=== PATIENT | male | born 1955 | race African-American/Black ===

== ENCOUNTER 2018-12-21 13:56 | Inpatient (IN) | payer BC, OTHER ==
[~2018-12-21] VITALS: Ht 170.2 cm; Wt 83.9 kg
[2018-12-21 14:48] LABS: Basophils # (auto) 0 uL; Basophils % (auto) 0.6 % (0.0-2.0); Eosinophils # (auto) 0.2 uL; Eosinophils % (auto) 3.6 % (0.0-7.0); Hematocrit 43.1 % (41.0-53.0); Hemoglobin 14.2 g/dL (13.5-17.5); Lymphocytes # (auto) 2.4 uL; Mean Corpuscular Hemoglobin 32.7 pg (28.0-32.0); Mean Corpuscular Hgb Conc. 32.9 g/dL (32.0-36.0); Mean Corpuscular Volume 99.5 fL (80.0-100.0); Monocytes # (auto) 0.4 uL; Monocytes % (auto) 7.6 % (0.0-12.0); Neutrophils # (auto) 1.7 uL; Neutrophils % (auto) 37.2 % (37.0-80.0); Nucleated Red Blood Cells % 0.1 %; Platelet Count (auto) 210 10^3/uL (140-450); Red Blood Cells 4.33 10^6/uL (4.5-5.90); Red Cell Distribution Width 13.5 % (11.8-14.3); White Blood Cell 4.7 10^3/uL (4.4-10.8)
[2018-12-21 15:03] LABS: Albumin 3.8 g/dL (3.4-5.0); Anion Gap 5 (5-15); Blood Urea Nitrogen 19 mg/dL (7-18); Calcium 9.4 mg/dL (8.5-10.1); Carbon Dioxide 28 mmol/L (21-32); Chloride 108 mmol/L (98-107); Glucose 92 mg/dL (74-106); Potassium 3.7 mmol/L (3.5-5.1); Sodium 141 mmol/L (136-145)
[2018-12-21 15:05] LABS: Alanine Aminotransferase 32 U/L (16-61); Aspartate Aminotransferase 30 U/L (15-37); BUN/Creatinine Ratio 17.9; GFR African American 91 mL/min; GFR Non-African American 75 mL/min
[2018-12-21 15:10] LABS: Alkaline Phosphatase 70 U/L (45-117); Bilirubin, Total 0.5 mg/dL (0.2-1.0); Total Protein 7.7 g/dL (6.4-8.2)
[2018-12-21 15:26] LABS: INR 1.05 (0.9-1.15); Partial Thromboplastin Time 28.2 sec (23.64-32.05)
[2018-12-21] MEDS ORDERED: CARV12.544 PO (17:51)
[2018-12-21] MEDS ORDERED: LOSA25TA40 PO (17:51)
[2018-12-21] MEDS ORDERED: ATOR20TA50 PO (17:51)
[2018-12-21] MEDS ORDERED: NIFE60TA59 PO (17:51)
[2018-12-21] MEDS ORDERED: BENA20TA14 PO (17:53)
[2018-12-21] MEDS ORDERED: MORPHINE SULF INJ 2 MG/ML SYRINGE 1ML IV PRN (20:00)
[2018-12-21] MEDS ORDERED: NITROGLYCERIN 0.4 MG SL TAB SL PRN (20:00)
[2018-12-21] MEDS ORDERED: ACETAMINOPHEN 500 MG TAB PO PRN (20:15)
[2018-12-21 21:30] VITALS: BP 167/71
--- NOTE | 2018-12-21 21:31 | NUR ---
OPENING NOTES RECEIVED PT FROM ED WITH NO SBAR HANDOFF REPORT. PT IS A/OX4 WITH NO S/S OF DISTRESS NOR PAIN, NOR SOB. BED IS IN LOWEST POSITION WITH SIDE RAILS UP X 2. BED BRAKES ARE LOCKED AND CALL LIGHT IS WITH IN REACH. HOB IS 30 DEGREES. DISCUSSED POC WITH PATIENT AND PATIENT VERBALIZED UNDERSTANDING.
[2018-12-21 22:00] VITALS: BP 167/71
--- NOTE | 2018-12-21 22:04 | NUR ---
NO DIET PLACED FOR PATIENT, WILL CALL HOSPITALIST.
[2018-12-21] MEDS: ATORVASTATIN 20 MG TAB PO SCH (22:14)
[2018-12-21] MEDS: FAMOTIDINE 20 MG TAB PO SCH (22:15)
[2018-12-21] MEDS: hydrALAZINE HCL 20 MG/ML VL IV PRN (22:16)
[2018-12-22 05:00] VITALS: BP 134/61
--- NOTE | 2018-12-22 07:24 | NUR ---
CLOSING NOTES ENDORSED CARE TO DAY SHIFT NURSEMONALISA.
--- NOTE | 2018-12-22 07:50 | NUR ---
Opening Shift Note Assumed care of patient, awake and alert ambulating in room. No S/S of distress/SOB or pain. Instructed on POC and to call for assist PRN, will continue to monitor for changes Q1hr and PRN.
--- NOTE | 2018-12-22 08:15 | NUR ---
Neurologist Rounding Dr. Gallegos at bedside.
[2018-12-22 08:40] VITALS: BP 141/75
[2018-12-22] MEDS ORDERED: LORazepam 2MG/ML-1ML VIAL IV PRN (08:45)
[2018-12-22] MEDS: FAMOTIDINE 20 MG TAB PO SCH ×2 (10:37→21:38)
[2018-12-22] MEDS: BENAZEPRIL HCL 10 MG TAB PO SCH (10:38)
--- NOTE | 2018-12-22 10:55 | NUR ---
MRI Patient left unit in wheelchair with video surveillance technician for MRI.
--- NOTE | 2018-12-22 11:23 | NUR ---
On unit. Patient returned to unit. No complaints at this time.
[2018-12-22 12:41] VITALS: BP 157/79
[2018-12-22] MEDS: hydrALAZINE HCL 20 MG/ML VL IV PRN ×2 (14:41→21:38)
[2018-12-22 15:15] LABS: Urine Bacteria NONE SEEN /hpf (None Seen); Urine Blood Negative /uL (Negative); Urine Specific Gravity 1.007 (1.001-1.035); Urine Sperm PRESENT /hpf (None Seen); Urine WBC <1 /hpf (0 - 3)
[2018-12-22 17:00] VITALS: BP 120/58
--- NOTE | 2018-12-22 17:30 | NUR ---
Rounding Patient laying in bed asleep. Will continue to monitor.
--- NOTE | 2018-12-22 19:38 | NUR ---
OPENING NOTES RECEIVED REPORT FROM DAY SHIFT NURSE. PT IS A/OX4 WITH NO S/S OF DISTRESS NOR PAIN, NOR SOB. BED IS IN LOWEST POSITION WITH SIDE RAILS UP X 2. BED BRAKES ARE LOCKED AND CALL LIGHT IS WITH IN REACH. HOB IS 30 DEGREES. DISCUSSED POC WITH PATIENT AND PATIENT VERBALIZED UNDERSTANDING.
[2018-12-22 20:00] VITALS: BP 157/79
--- NOTE | 2018-12-22 20:26 | NUR ---
EKG EKG PERFORMED ON PATIENT ORDERED BY MD FARIA. RESULTS FOLLOWS: SINUS RHYTHM WITH 1TH DEGREE AV BLOCK RIGHT BUNDLE BRANCH BLOCK, LEFT ANTERIOR FASCICULAR BLOCK, BIFASCICULAR BLOCK, LEFT VENTRICULAR HYPERTROPHY WITH QRS WIDENING, ABNORMAL ECG.
[2018-12-22] MEDS: ATORVASTATIN 20 MG TAB PO SCH (21:38)
[2018-12-22 22:00] VITALS: BP 154/69
--- NOTE | 2018-12-23 01:59 | NUR ---
HEART PAUSE PT HAS 2 ONE SECOND HEART PAUSES. PT AWAKEN AND ASYMPTOMATIC, DENIES CHEST PAIN AND DISTRESS. VITAL SIGNS HR 61, TEMP 98.1, BP 151/70, RR 18, SPO2 98. EKG PERFORMED DIFFERS FROM PREVIOUS EKG IN A LEFT AXIS DEVIATION. WILL CONTINUE TO MONITOR.
[2018-12-23 05:00] VITALS: BP 139/83
[2018-12-23 06:35] LABS: Albumin 3.7 g/dL (3.4-5.0); BUN/Creatinine Ratio 21.9; Calcium 8.6 mg/dL (8.5-10.1); Potassium 3.4 mmol/L (3.5-5.1)
[2018-12-23 06:37] LABS: Basophils # (auto) 0 uL; Basophils % (auto) 0.4 % (0.0-2.0); Eosinophils # (auto) 0.1 uL; Eosinophils % (auto) 2.3 % (0.0-7.0); Hematocrit 41.8 % (41.0-53.0); Hemoglobin 14.1 g/dL (13.5-17.5); Lymphocytes # (auto) 2.6 uL; Lymphocytes % (auto) 45.8 % (10.0-50.0); Mean Corpuscular Hemoglobin 33.2 pg (28.0-32.0); Mean Corpuscular Hgb Conc. 33.9 g/dL (32.0-36.0); Monocytes # (auto) 0.5 uL; Monocytes % (auto) 8.2 % (0.0-12.0); Neutrophils # (auto) 2.4 uL; Neutrophils % (auto) 43.3 % (37.0-80.0); Platelet Count (auto) 203 10^3/uL (140-450); Red Blood Cells 4.26 10^6/uL (4.5-5.90); Red Cell Distribution Width 13.5 % (11.8-14.3); White Blood Cell 5.6 10^3/uL (4.4-10.8)
[2018-12-23 06:40] LABS: Bilirubin, Total 0.6 mg/dL (0.2-1.0); Total Protein 7.4 g/dL (6.4-8.2)
--- NOTE | 2018-12-23 07:40 | NUR ---
CLOSING NOTES ENDORSED CARE TO DAY SHIFT NURSELOU.
--- NOTE | 2018-12-23 08:20 | NUR ---
Patient sitting in chair, eating breakfast. No acute distress noted.
[2018-12-23 08:41] VITALS: BP 153/70
[2018-12-23 08:48] LABS: Folate (Folic Acid) 11.84 ng/mL (5.38-24)
--- NOTE | 2018-12-23 08:48 | NUR ---
Patient is very upset, angry, complained that many tests have been done on him but the doctor has not explained to him the results yet, he wants to see the Mortgage Operations Manager and he wants to see the Neurologist again before 11:00 am today, if not he will file a complaint to the management, he wants to speak with the Charge Nurse. Explained to patient and that doctor's have no exact or definite time on coming to the hospital to see the patients, he's free to file a complaint, I will call the Charge Nurse.
--- NOTE | 2018-12-23 08:50 | NUR ---
Called Charge Nurse Vamshi that patient is upset. Patient wants to speak with her. Vamshi said she's on a meeting at this time. Patient made aware.
--- NOTE | 2018-12-23 08:54 | NUR ---
Paged Dr. Candelario. Waiting for a clary back.
[2018-12-23] MEDS: BENAZEPRIL HCL 10 MG TAB PO SCH (09:31)
[2018-12-23] MEDS: hydrALAZINE HCL 20 MG/ML VL IV PRN (09:31)
--- NOTE | 2018-12-23 09:31 | NUR ---
SBP = 153/70. Hydralazine 10 mg IVP given for SBP >150 as ordered.
[2018-12-23] MEDS: FAMOTIDINE 20 MG TAB PO SCH ×2 (09:32→21:44)
--- NOTE | 2018-12-23 09:40 | NUR ---
Charge Nurse Vamshi spoke with the patient.
--- NOTE | 2018-12-23 10:00 | NUR ---
Charge Nurse Vamshi called House Sup regarding the follow up Cardiology Consult. Patient is waiting to see the Armored Car Messenger.
[2018-12-23] MEDS ORDERED: POTASSIUM CHL 20 Meq TABLET PO ONE (10:45)
--- NOTE | 2018-12-23 11:00 | NUR ---
BP = 150/73.
[2018-12-23 12:32] VITALS: BP 150/73
--- NOTE | 2018-12-23 13:38 | NUR ---
Patient stated he has headache. Tylenol PO given for pain as ordered.
--- NOTE | 2018-12-23 13:48 | NUR ---
Dr. Candelario at bedside. explained the results of the tests done as requested by the patient.
--- NOTE | 2018-12-23 14:00 | NUR ---
Dr. Candelario ordered to call in Benazepril 40 mg PO daily #30, stop Coreg at home, patient to make a follow up appointment with Dr. Murphy for Cardiology Consult.
--- NOTE | 2018-12-23 14:03 | NUR ---
Patient wants to go downstairs. Explained to patient the risks and benefits of going off unit/smoking downstairs against medical advice (AMA), not beyond 30 minutes, within hospital premises only. Patient verbalized understanding, signed the AMA form to go off unit/smoke downstairs.
--- NOTE | 2018-12-23 14:05 | NUR ---
Called [facility] for prescription Benazepril 40 mg daily #30.
--- NOTE | 2018-12-23 14:13 | NUR ---
Dr. Candelario ordered to discharge the patient, Dr. Murphy's office to call the patient for appointment.
[2018-12-23 14:48] VITALS: BP 150/73
--- NOTE | 2018-12-23 15:00 | NUR ---
Dr. Renee came over for Cardiology Consult.
--- NOTE | 2018-12-23 15:15 | NUR ---
Dr. Renee ordered Stress Test tomorrow, Carotid Doppler, hold the discharge order today.
--- NOTE | 2018-12-23 15:15 | NUR ---
Dr. Renee ordered to call the HÉCTOR to inform the RN if patient's Heart Rate goes bradycardia.
--- NOTE | 2018-12-23 15:20 | NUR ---
Paged Dr. Candelario.
--- NOTE | 2018-12-23 15:22 | NUR ---
Dr. Candelario called back. made aware Dr. Renee ordered Stress Test tomorrow,hold the discharge order today.
[2018-12-23 17:00] VITALS: BP 144/83
--- NOTE | 2018-12-23 17:36 | NUR ---
H[facility]CTOR Tech called that patient Heart Rate went down from 60 to 59 then back to 60 bpm to 61 bpm.
--- NOTE | 2018-12-23 18:30 | NUR ---
Patient stated Dr. Diehl came over to see him for Cardiology, that he told Dr. Diehl that Dr. Renee ordered Stress Test for tomorrow. Patient requested if his Stress Test can be done early tomorrow so he would know the results right away.
--- NOTE | 2018-12-23 18:42 | NUR ---
Patient requested that RN call Stress Lab/Nuclear Medicine tomorrow morning, , if he could have the Stress Test early so he would know the results, and if he will go home.
--- NOTE | 2018-12-23 19:50 | NUR ---
PATIENT LAYING ON BED AWAKE, ALERT AND ORIENTED X 4. DENIES PAIN OR DISCOMFORT AT THIS TIME. REVIEWED POC. REMINDED OF STRESS TEST FOR MORNING. MADE AWARE NEEDED TO START ANOTHER IV LATER FOR STRESS TEST TOMORROW. PATIENT VERBALIZED UNDERSTANDING. ENCOURAGED TO CALL WHEN NEEDED ANYTHING. CONTINUE PATIENT CARE.
[2018-12-23] MEDS: ATORVASTATIN 20 MG TAB PO SCH (21:44)
--- NOTE | 2018-12-23 21:50 | NUR ---
IV insertion IV access obtained, via clean sterile technique by inserting 22 gauge catheter at LEFT FOREARM after 1 attempt. IV secured properly. No trauma to site. Patient tolerated well.
[2018-12-23 22:00] VITALS: BP 163/78
--- NOTE | 2018-12-24 00:20 | NUR ---
PATIENT RESTING ON BED WITH EYES CLOSED, NO RESPIRATORY DISTRESS NOTED. PATIENT IS EASILY AROUSABLE TO NAME. BP REASSESSED, 142/72 HR 64. DENIES PAIN OR DISCOMFORT AT THIS TIME. CONTINUE PATIENT CARE.
[2018-12-24 00:31] VITALS: BP 142/72
[2018-12-24 05:00] VITALS: BP 159/67
[2018-12-24 06:34] LABS: BUN/Creatinine Ratio 14.9; Calcium 8.8 mg/dL (8.5-10.1); Magnesium 2.6 mg/dL (1.6-2.6); Potassium 3.6 mmol/L (3.5-5.1)
--- NOTE | 2018-12-24 07:25 | NUR ---
Opening Shift Note Assumed care of patient, awake and alert, currently ambulating in room. No S/S of distress/SOB or pain reported at this time. Instructed on POC and to call for assist PRN, will continue to monitor for changes Q1hr and PRN.
[2018-12-24 08:00] VITALS: BP 159/67
--- NOTE | 2018-12-24 08:18 | NUR ---
PT OFF UNIT FOR STRESS TEST PT TAKEN VIA WHEELCHAIR, NO DISTRESS NOTED AT THIS TIME
[2018-12-24] MEDS ORDERED: ADENOSINE 70 MG in GIVE UN-DILUTED 0 ML IV STA (08:37)
--- NOTE | 2018-12-24 08:45 | NUR ---
PT BACK FROM STRESS TEST PENDING SECOND PART OF TEST, PT ASYMPTOMATIC, NO DISTRESS NOTED, NO C/O CP, SOB OR ANY OTHER DISCOMFORT, CONT CARE
[2018-12-24] MEDS ORDERED: BENAZEPRIL HCL 10 MG TAB PO SCH (10:00)
[2018-12-24 10:26] VITALS: BP 145/68
--- NOTE | 2018-12-24 11:22 | NUR ---
BRADYCARDIA HÉCTOR CALLS TO REPORT PT HR 52, PT CURRENTLY OFF UNIT IN NUCLEAR STRESS TEST, CALLED AND SPOKE WITH BANG, PT ASYMPTOMATIC AND ON HIS WAY BACK, CONT CARE, PT RETURNED @ 1131 VS 164/77, P 55, O2 99% ON RA, NO C/O CP, SOB OR ANY OTHER DISCOMFORT, CONT CARE
--- NOTE | 2018-12-24 12:00 | NUR ---
CARDIOLOGY SPOKE WITH DR HWANG, PER PT IS CLEARED FOR DISCHARGE AND PT IS FOLLOW UP IN 2 WEEKS, [facility]
--- NOTE | 2018-12-24 12:38 | NUR ---
AT BEDSIDE DR FARIA AT BEDSIDE, DISCUSSING POC WITH PT, PENDING DC ORDER, CONT CARE
[2018-12-24] MEDS: FAMOTIDINE 20 MG TAB PO SCH (12:46)
[2018-12-24 13:23] VITALS: BP 164/77
[2018-12-24 13:43] VITALS: BP 164/77
--- NOTE | 2018-12-24 14:30 | NUR ---
CARDIOLOGY APPOINTMENT CALLED DR MICHAEL OFFICE, SPOKE WITH BRENTON AND APPOINTMENT MADE FOR JANUARY 08 @ 1000, [facility]
--- NOTE | 2018-12-24 14:41 | NUR ---
PAGED DR BIENVENIDO GOMEZ, PT CONCERNED REGARDING [facility] REPORT, SATES " DR GRANADOS SAID I COULD DRIVE BECAUSE ITS NOT A SEIZURE", ALSO ABATING DR RIVAS TO CALL BACK, CONT CARE
--- NOTE | 2018-12-24 14:50 | NUR ---
MEDICAL RECORDS CALLED AND SPOKE WITH IVAN FROM MR, REGARDING PT AND REQUESTING THAT CERTAIN DIAGNOSIS BE REMOVED FROM HIS MEDICAL RECORDS, STATES SHE WILL TALK TO INVOLVED PROVIDERS, PT AND WIDE UPDATED
--- NOTE | 2018-12-24 15:05 | NUR ---
CALL BACK DR RIVAS RETURNED CALL, UPDATED AND INFORMED PT IS REQUESTING THAT [facility] REPORT TO NOT DRIVE NOT BE SENT TO [facility] HIS SYNCOPE WAS NOT RELATED TO SEIZURE AND THEREFORE HE SHOULD BE ALLOWED TO DRIVE HIS JOB DEPENDS ON DRIVING, DR RIVAS STATES " NO IT IS THE LAW AND FORM SHOULD BE SENT TO THE [facility] AND SHOULD BE CLEARED BY HIS PRIMARY DOCTOR", PT AND UPDATED, CONT WITH DC
--- NOTE | 2018-12-24 15:44 | NUR ---
DISCHARGE Discharge instructions given as ordered. Encourage to follow up with PMD as instructed. Appointment made to follow up with Dr Forrester on 12/29/[address] Diehl January 08 @ 1000, contact and addresses provided. All questions and concerns addressed. Patient verbalized understanding. Medication reconciliation form completed and copy given to patient. IV removed with catheter intact, pressure dressing applied. Telemetry unit returned to ICU. Patient ambulated to [facility] with all personal belongings, accompanied by staff and family member. No distress noted at time of departure.
== END 2018-12-24 17:18 | disposition home or self-care (01) | DRG 312 ==
LOC: ER 13:56 → TELE 20:06 → TELE-WESTW 21:09
PROVIDERS: ADMIT Nurse Practitioner Acute Care; ATTEND Internal Medicine
DX: R55 Syncope and collapse (principal); I45.2 Bifascicular block; N18.3 Chronic kidney disease, stage 3 (moderate); E78.5 Hyperlipidemia, unspecified; I12.9 Hypertensive chronic kidney disease with stage 1 through stage 4 chronic kidney disease, or unspecified chronic kidney disease; R00.1 Bradycardia, unspecified; E86.0 Dehydration; F17.210 Nicotine dependence, cigarettes, uncomplicated; T50.995A Adverse effect of other drugs, medicaments and biological substances, initial encounter; H93.19 Tinnitus, unspecified ear; I67.2 Cerebral atherosclerosis; W19.XXXA Unspecified fall, initial encounter; I08.0 Rheumatic disorders of both mitral and aortic valves; Z98.42 Cataract extraction status, left eye; Z98.41 Cataract extraction status, right eye; Y92.098 Other place in other non-institutional residence as the place of occurrence of the external cause
CPT/HCPCS: 36415; 70450; 70551; 71046; 78452; 80048; 80053; 80061; 81001; 82607; 82746; 82962; 83036; 83735; 83880; 84484; 85025; 85610; 85730; 93005; 93017; 93306; 93886; 96374; G0378; J0153

== ENCOUNTER 2019-08-17 19:52 | Emergency (ER) | payer BC ==
[~2019-08-17] VITALS: Ht 177.8 cm; Wt 99.8 kg
[~2019-08-17 19:52] MED LIST: ATOR20TA50 PO; BENA20TA14 PO; CARV12.544 PO; NIFE1TAB30 PO
[2019-08-17 20:37] VITALS: BP 155/67
== END 2019-08-17 22:29 | disposition home or self-care (01) ==
LOC: EDUNIT# 19:52 → EDBD 19:52 → ER 20:00
DX: S06.0X1A Concussion with loss of consciousness of 30 minutes or less, initial encounter (principal); E78.5 Hyperlipidemia, unspecified; I10 Essential (primary) hypertension; F17.210 Nicotine dependence, cigarettes, uncomplicated; X58.XXXA Exposure to other specified factors, initial encounter; Y93.89 Activity, other specified; Y92.89 Other specified places as the place of occurrence of the external cause; Y99.8 Other external cause status
CPT/HCPCS: 70450; 72125

== ENCOUNTER 2019-08-24 14:18 | Emergency (ER) | payer BC ==
[~2019-08-24] VITALS: Ht 170.2 cm; Wt 85.3 kg
[2019-08-24 18:00] VITALS: BP 174/72
== END 2019-08-24 18:09 | disposition home or self-care (01) ==
LOC: ER 14:20
DX: I10 Essential (primary) hypertension (principal); E78.5 Hyperlipidemia, unspecified; F17.210 Nicotine dependence, cigarettes, uncomplicated

== ENCOUNTER 2020-02-05 23:57 | Emergency (ER) | payer BC ==
[~2020-02-05] VITALS: Ht 170.2 cm; Wt 83.9 kg
[2020-02-06 04:19] VITALS: BP 105/75
== END 2020-02-06 04:53 | disposition home or self-care (01) ==
LOC: ER 23:57
DX: S00.01XA Abrasion of scalp, initial encounter (principal); Z72.89 Other problems related to lifestyle; I10 Essential (primary) hypertension; E78.5 Hyperlipidemia, unspecified; F17.210 Nicotine dependence, cigarettes, uncomplicated; W19.XXXA Unspecified fall, initial encounter; Y93.89 Activity, other specified; Y92.89 Other specified places as the place of occurrence of the external cause; Y99.8 Other external cause status
CPT/HCPCS: 70450; 93005

== ENCOUNTER 2021-06-18 14:41 | Inpatient (IN) | payer BC ==
[~2021-06-18] VITALS: Ht 170.2 cm; Wt 88.3 kg
[2021-06-18] MEDS ORDERED: DOPamine 1600MCG/ML D5W 250 ML IV ONE ×2 (15:00→17:45)
[2021-06-18 15:26] LABS: Albumin 3.4 g/dL (3.4-5.0); BUN/Creatinine Ratio 21.1; Calcium 8.8 mg/dL (8.5-10.1)
[2021-06-18 15:31] LABS: Basophils # (auto) 0 10 ^3/uL (0-0.2); Basophils % (auto) 0.8 % (0.0-2.0); Bilirubin, Total 0.4 mg/dL (0.2-1.0); Eosinophils # (auto) 0.1 10 ^3/uL (0-0.8); Eosinophils % (auto) 1.5 % (0.0-7.0); Hematocrit 39.6 % (41.0-53.0); Hemoglobin 13.1 g/dL (13.5-17.5); Lymphocytes # (auto) 2.2 10 ^3/uL (0.4-5.4); Lymphocytes % (auto) 42.1 % (10.0-50.0); Mean Corpuscular Hemoglobin 32.9 pg (28.0-32.0); Mean Corpuscular Hgb Conc. 33.2 g/dL (32.0-36.0); Mean Corpuscular Volume 99.1 fL (80.0-100.0); Monocytes # (auto) 0.5 10 ^3/uL (0-1.3); Monocytes % (auto) 9.5 % (0.0-12.0); Neutrophils # (auto) 2.4 10 ^3/uL (1.6-8.6); Neutrophils % (auto) 46.1 % (37.0-80.0); Red Blood Cells 3.99 10^6/uL (4.5-5.90); Total Protein 7.3 g/dL (6.4-8.2); White Blood Cell 5.3 10^3/uL (4.4-10.8)
[2021-06-18] MEDS ORDERED: NITROGLYCERIN 0.4 MG SL TAB SL PRN (17:30)
[2021-06-18] MEDS ORDERED: GLUCAGON HYDROCHLORIDE (RDNA) 1 MG VIAL IV ONE (17:30)
[2021-06-18] MEDS ORDERED: MORPHINE SULFATE INJECTION 2 MG/ML SYRG IV PRN (17:30)
[2021-06-18] MEDS ORDERED: SODIUM CHLORIDE 0.9% 1,000 ML IV ONE (17:30)
[2021-06-18] MEDS ORDERED: ONDANSETRON HCL 4 MG/2 ML VIAL ONE (17:43)
[2021-06-18] MEDS ORDERED: hydrALAZINE HCL 20 MG/ML VL IV PRN (17:45)
[2021-06-18] MEDS ORDERED: ONDANSETRON HCL 4 MG/2 ML VIAL IV ONE (18:00)
[2021-06-18 19:31] LABS: INR 1.05 (0.9-1.15)
[2021-06-18 23:00] LABS: Magnesium 2.9 mg/dL (1.6-2.6)
[2021-06-19] MEDS: ENOXAPARIN SOD 60 MG/0.6 ML SYRINGE SC SCH ×2 (00:09→10:00)
[2021-06-19] MEDS ORDERED: DOPamine 1600MCG/ML D5W 250 ML IV ONE (02:28)
[2021-06-19] MEDS ORDERED: DOPamine 1600MCG/ML D5W 250 ML IV SCH ×2 (02:30→06:45)
[2021-06-19 09:36] LABS: Basophils # (auto) 0 10 ^3/uL (0-0.2); Basophils % (auto) 0.3 % (0.0-2.0); Eosinophils # (auto) 0 10 ^3/uL (0-0.8); Eosinophils % (auto) 0.1 % (0.0-7.0); Hematocrit 39.5 % (41.0-53.0); Hemoglobin 12.7 g/dL (13.5-17.5); Lymphocytes # (auto) 1.6 10 ^3/uL (0.4-5.4); Lymphocytes % (auto) 17.1 % (10.0-50.0); Mean Corpuscular Hemoglobin 31.9 pg (28.0-32.0); Mean Corpuscular Hgb Conc. 32.1 g/dL (32.0-36.0); Mean Corpuscular Volume 99.5 fL (80.0-100.0); Monocytes % (auto) 10.9 % (0.0-12.0); Neutrophils # (auto) 6.5 10 ^3/uL (1.6-8.6); Neutrophils % (auto) 71.6 % (37.0-80.0); Nucleated Red Blood Cells % 0.1 %; Red Blood Cells 3.97 10^6/uL (4.5-5.90); Red Cell Distribution Width 14.1 % (11.8-14.3); White Blood Cell 9.1 10^3/uL (4.4-10.8)
[2021-06-19 09:47] LABS: BUN/Creatinine Ratio 15.9; Calcium 8.1 mg/dL (8.5-10.1); Potassium 3.8 mmol/L (3.5-5.1)
[2021-06-19] MEDS: SODIUM CHLORIDE 0.9% 1,000 ML IV SCH (10:03)
[2021-06-19] MEDS ORDERED: VANCOMYCIN 1GM/250ML 250 ML IV ONE ×2 (14:15→15:27)
[2021-06-19] MEDS ORDERED: CARV12.544 PO (14:26)
[2021-06-19] MEDS ORDERED: TAMS0.4C36 PO (14:26)
[2021-06-19] MEDS ORDERED: HYDR-4902 PO (14:26)
[2021-06-19] MEDS ORDERED: BENA40TA83 PO (14:26)
[2021-06-19] MEDS ORDERED: ATOR10TA PO (14:26)
[2021-06-19] MEDS ORDERED: DOCU100C10 PO (14:26)
[2021-06-19] MEDS ORDERED: LIDOCAINE 2%HCL (LOCAL ANESTH.) INJ 20ML MDV ONE (15:27)
[2021-06-19] MEDS ORDERED: fentaNYL CITRATE 100 MCG/2 ML VL ONE (15:27)
[2021-06-19] MEDS ORDERED: MIDAZOLAM HCL 2MG/2ML 2ml VIAL (1mg/ml) ONE (15:27)
[2021-06-19] MEDS ORDERED: VANCOMYCIN HCL 1000 MG VL ONE (15:27)
[2021-06-19] MEDS ORDERED: ACETAMINOPHEN 325 MG TAB PO PRN (17:00)
[2021-06-19] MEDS: CEPHALEXIN 250 MG CAP PO SCH (17:57)
[2021-06-19 22:23] VITALS: BP 158/82
[2021-06-20] MEDS ORDERED: MORPHINE SULFATE INJECTION 2 MG/ML SYRG IV ONE (00:15)
[2021-06-20] MEDS: CEPHALEXIN 250 MG CAP PO SCH ×3 (00:27→12:11)
[2021-06-20] MEDS: HYDROcodone-ACET 5/325MG TAB PO PRN ×2 (00:28→05:53)
[2021-06-20 05:18] VITALS: BP 152/71
[2021-06-20] MEDS: SODIUM CHLORIDE 0.9% 1,000 ML IV SCH (07:13)
[2021-06-20 08:15] VITALS: BP 150/67
[2021-06-20 13:00] VITALS: BP 174/79
[2021-06-20] MEDS ORDERED: cloNIDine HCL 0.1 MG TAB PO ONE (13:30)
[2021-06-20] MEDS ORDERED: CARVEDILOL 12.5 MG TAB PO ONE (14:45)
[2021-06-20] MEDS ORDERED: NIFEdipine 10 MG CAP PO ONE (14:45)
[2021-06-20] MEDS ORDERED: NIFEdipine ER 30 MG TAB PO ONE (15:00)
== END 2021-06-20 17:30 | disposition home health service (06) | DRG 243 ==
LOC: ER 14:41 → TELE 17:26 → TELE-WESTW 06-19 17:43
PROVIDERS: ADMIT Internal Medicine; ATTEND Internal Medicine
PROC: 0JH606Z Insertion of Pacemaker, Dual Chamber into Chest Subcutaneous Tissue and Fascia, Open Approach (ICD-10-PCS; principal; 2021-06-19)
PROC: 02H63JZ Insertion of Pacemaker Lead into Right Atrium, Percutaneous Approach (ICD-10-PCS; 2021-06-19)
PROC: 02HK3JZ Insertion of Pacemaker Lead into Right Ventricle, Percutaneous Approach (ICD-10-PCS; 2021-06-19)
DX: I44.1 Atrioventricular block, second degree (principal); N17.9 Acute kidney failure, unspecified; I10 Essential (primary) hypertension; E78.5 Hyperlipidemia, unspecified; F17.210 Nicotine dependence, cigarettes, uncomplicated; Z20.822 Contact with and (suspected) exposure to COVID-19; Z79.899 Other long term (current) drug therapy
CPT/HCPCS: 33208; 36415; 70450; 71045; 80048; 80053; 80061; 83735; 83880; 84443; 84484; 85025; 85610; 87426; 93005; 93306; 96365; 96366; 96375; 99152; 99153; 99291; G0378; J2250; J2405